=== PATIENT | male | born 1980 | race American Indian/Alaskan Native ===

== ENCOUNTER 2017-12-31 13:47 | Emergency (ER) | payer SELFPAY ==
[2017-12-31 14:28] VITALS: BP 146/79
[2017-12-31] MEDS ORDERED: ZITHROMAX PO ONE (17:24)
[2017-12-31] MEDS ORDERED: ROCEPHIN IM ONE (17:24)
[2017-12-31] MEDS ORDERED: XYLOCAINE 1% MPF 5 mL INFILTRATI ONE (17:24)
--- NOTE | 2017-12-31 17:27 | Emergency Department Report ---
ED Male HPI - General Chief complaint: Urogenital-Male Stated complaint: STD TESTING Time Seen by Provider: 12/31/17 17:15 Source: patient Mode of arrival: Ambulatory Limitations: No Limitations - History of Present Illness Initial comments: Patient is a 37-year-old male who is presenting with exposure to STDs. Patient states partner was diagnosed with chlamydia. Patient has no current symptoms but like to be treated. Patient denies any nausea vomiting diarrhea fevers. Discharge or dysuria at this time. - Related Data Allergies Allergy/AdvReac Type Severity Reaction Status Date / Time No Known Allergies Allergy Unverified 12/31/17 14:28 ED Review of Systems ROS: Stated complaint: STD TESTING Other details as noted in HPI Comment: All other systems reviewed and negative ED Past Medical Hx - Past Medical History Previous Medical History?: No - Surgical History Past Surgical History?: No - Social History Smoking Status: Current Every Day Smoker Substance Use Type: Alcohol ED Physical Exam - General Limitations: No Limitations General appearance: alert, in no apparent distress - Head Head exam: Present: atraumatic, normocephalic - Eye Eye exam: Present: normal appearance - ENT ENT exam: Present: mucous membranes moist - Neck Neck exam: Present: normal inspection - Respiratory Respiratory exam: Present: normal lung sounds bilaterally. Absent: respiratory distress - Cardiovascular Cardiovascular Exam: Present: regular rate, normal rhythm. Absent: systolic murmur, diastolic murmur, rubs, gallop - GI/Abdominal GI/Abdominal exam: Present: soft, normal bowel sounds - Rectal Rectal exam: Present: deferred - Extremities Exam Extremities exam: Present: normal inspection - Back Exam Back exam: Present: normal inspection - Neurological Exam Neurological exam: Present: alert, oriented X3 - Psychiatric Psychiatric exam: Present: normal affect, normal mood - Skin Skin exam: Present: warm, dry, intact, normal color. Absent: rash ED Course Vital Signs 12/31/17 14:27 Temperature 98.2 F Pulse Rate 83 Respiratory 18 Rate Blood Pressure 146/79 O2 Sat by Pulse 100 Oximetry ED Medical Decision Making - Medical Decision Making Patient was deemed a nonmedical emergency. Patient didn't pay part of the hospital co-pay and he is electing to be treated here in the emergency department. Patient was given Rocephin and azithromycin and will be discharged home. Critical care attestation.: If time is entered above; I have spent that time in minutes in the direct care of this critically ill patient, excluding procedure time. ED Disposition Clinical Impression: Urethritis Disposition: Z-01 MED SCREENING EXAM-CONT Is pt being admited?: No Does the pt Need Aspirin: No Condition: Stable Instructions: Nonspecific Urethritis in Men (ED) Referrals: TAMMY DREW MD [Primary Care Provider] - 3-5 Days Forms: STI Treatment and Prevention
== END 2017-12-31 17:58 | disposition home or self-care (01) ==
LOC: ED 13:47
DX: N34.2 Other urethritis (principal); F17.200 Nicotine dependence, unspecified, uncomplicated
CPT/HCPCS: 96372; 99282; J0696